=== PATIENT | female | born 2000 | race Hispanic/Latino ===

== ENCOUNTER 2018-01-20 16:04 | Emergency (ER) | payer OTHER ==
--- NOTE | 2018-01-20 17:01 | RAD ---
THREE VIEWS OF THE RIGHT FOOT 01/20/18 COMPARISON: None. HISTORY: Toe trauma, pain. FINDINGS: There is no displaced fracture or evidence of dislocation seen. There is no radiopaque foreign body o r subcutaneous gas. IMPRESSION: No acute osseous abnormality. POS: [facility]
[2018-01-20 17:37] LABS: Pregnancy Test - Urine (BHCG) Negative (Negative); Pregu Control Background? CLEAR/WHITE (CLR/WHITE); Pregu Control Bar Appear? YES (CONTROL BAR); Specific Gravity 1.018 (1.002-1.036)
[2018-01-20] MEDS ORDERED: Ketorolac Tromethamine 30 MG/ML VIAL ONE (17:47)
== END 2018-01-20 18:08 | disposition home or self-care (01) ==
LOC: ERS 16:04
DX: S90.121A Contusion of right lesser toe(s) without damage to nail, initial encounter (principal); K21.9 Gastro-esophageal reflux disease without esophagitis; W31.82XA Contact with other commercial machinery, initial encounter
CPT/HCPCS: 81025; 96372; J1885

== ENCOUNTER 2018-03-16 09:43 | Emergency (ER) | payer OTHER, SELFPAY | END 2018-03-16 10:35 | disposition home or self-care (01) | LOC: ERS 09:43 | DX: J02.9 Acute pharyngitis, unspecified (principal); J06.9 Acute upper respiratory infection, unspecified; K21.9 Gastro-esophageal reflux disease without esophagitis; F32.9 Major depressive disorder, single episode, unspecified | CPT/HCPCS: 99282 ==

== ENCOUNTER 2018-08-25 06:27 | Emergency (ER) | payer SELFPAY ==
[2018-08-25] MEDS ORDERED: Acetaminophen 500 MG TAB ONE (06:46)
[2018-08-25] MEDS ORDERED: Ketorolac Tromethamine 30 MG/ML VIAL ONE (07:11)
[2018-08-25 07:23] LABS: #Lymphocytes 1.4 thou/uL (1.20-3.40); #Monocytes 0.8 thou/uL (0.11-0.59); #Neutrophils 8.5 thou/uL (1.40-6.50); %Basophils 0.1 % (0.0-1.0); %Eosinophils 0.4 % (0.0-10.0); %Lymphocytes 13.1 % (28.0-48.0); %Monocytes 7.2 % (0.0-4.0); %Neutrophils 79.2 % (31.0-61.0); Hemoglobin 12.4 g/dL (12.0-16.0); Mean Corpuscular HGB CONC 33.3 g/dL (32.0-36.0); Mean Corpuscular Hemoglobin 29.4 pg (25.0-35.0); Mean Corpuscular Volume 88.3 fL (78.0-98.0); Mean Platelet Volume 6.9 fL (7.4-10.4); Platelet Count 316 thou/uL (130-400); RBC Distribution Width 11.9 % (11.5-14.5); Red Blood Cell (RBC) Count 4.23 mill/uL (4.00-5.20); White Blood Cell (WBC) Count 10.8 thou/uL (4.8-10.8)
[2018-08-25 07:42] LABS: ALT (SGPT) 31 U/L (8-55); AST (SGOT) 28 U/L (5-34); Albumin 4.2 g/dL (3.5-5.0); Alkaline Phosphatase 43 U/L (40-150); Anion Gap 17 mmol/L (10-20); BUN (Urea Nitrogen) 5 mg/dL (7.0-18.7); Bilirubin, Total 0.2 mg/dL (0.2-1.2); Calc. Creatinine Clearance 0 mL/min (70-130); Carbon Dioxide 14 mmol/L (22-29); Chloride 106 mmol/L (98-107); Estimated GFR-MDRD Greater than 90; Globulin 3.4 g/dL (2.4-3.5); Glucose 106 mg/dL (70-105); Potassium 4.4 mmol/L (3.5-5.1); Protein, Total 7.6 g/dL (6.0-8.3); Sodium 133 mmol/L (136-145)
--- NOTE | 2018-08-25 08:19 | RAD ---
CHEST 2 VIEWS: Date: 08/25/18 HISTORY: Cough and fever, flu-like symptoms. COMPARISON: 10/06/16. FINDINGS: Heart size is normal. The lungs are clear. Monitor leads overlie the chest. IMPRESSION: No acute intrathoracic disease. No evidence for pneumonia. Stable from prior study. POS: [facility]
[2018-08-25 08:29] LABS: Specific Gravity 1.007 (1.002-1.036)
[2018-08-25 08:45] LABS: Pregnancy Test - Urine (BHCG) Negative (Negative); Pregu Control Background? CLEAR/WHITE (CLR/WHITE); Pregu Control Bar Appear? YES (CONTROL BAR)
[2018-08-25 08:51] LABS: Bilirubin Negative (Negative); Blood, Urine Negative (Negative); Clarity CLEAR (Clear); Glucose, Urine (Dipstick) Negative (Negative); Leukocyte Moderate (Negative); Nitrite Negative (Negative); Protein, Urine (Dipstick) Negative (Neg-Trace); Specific Gravity, Urine 1.007 (1.002-1.036); Urobilinogen 0.2 mg/dL (0.2-1.0)
[2018-08-25 08:53] LABS: Bacteria/HPF None Seen HPF (None Seen); Hyaline Casts/LPF 0-3 HYALINE CAST LPF (0-3 Hyaline); RBC/HPF 0-3 HPF (0-3); Squamous Epithelial 0-3 HPF (0-3)
== END 2018-08-25 09:08 | disposition home or self-care (01) ==
LOC: ERS 06:27
DX: J11.1 Influenza due to unidentified influenza virus with other respiratory manifestations (principal); R11.0 Nausea; K21.9 Gastro-esophageal reflux disease without esophagitis; F32.9 Major depressive disorder, single episode, unspecified; F41.0 Panic disorder [episodic paroxysmal anxiety]
CPT/HCPCS: 71046; 80053; 81003; 81015; 81025; 84484; 85025; 87081; 87430; 87804; 93005; 96361; 96374; J1885

== ENCOUNTER 2018-08-31 19:12 | Emergency (ER) | payer SELFPAY ==
[2018-08-31] MEDS ORDERED: Acetaminophen 500 MG TAB ONE (19:43)
[2018-08-31 20:12] LABS: Bilirubin Negative (Negative); Blood, Urine Large (Negative); Clarity CLEAR (Clear); Glucose, Urine (Dipstick) Negative (Negative); Leukocyte Small (Negative); Nitrite Negative (Negative); Protein, Urine (Dipstick) Negative (Neg-Trace); Specific Gravity, Urine 1.007 (1.002-1.036); Urobilinogen 0.2 mg/dL (0.2-1.0)
[2018-08-31 20:18] LABS: Bacteria/HPF None Seen HPF (None Seen); Hyaline Casts/LPF 0-3 HYALINE CAST LPF (0-3 Hyaline); Pathc Cast-AUWi Flag 0.43 (0-2.49); RBC/HPF GREATER THAN 50-TNTC HPF (0-3); Squamous Epithelial 0-3 HPF (0-3)
[2018-08-31 20:20] LABS: #Basophils 0.1 thou/uL (0.0-0.2); #Eosinphils 0.1 thou/uL (0.0-0.7); #Lymphocytes 2.6 thou/uL (1.20-3.40); #Monocytes 0.7 thou/uL (0.11-0.59); #Neutrophils 10.6 thou/uL (1.40-6.50); %Basophils 0.8 % (0.0-1.0); %Lymphocytes 18.1 % (28.0-48.0); %Monocytes 5.2 % (0.0-4.0); %Neutrophils 74.9 % (31.0-61.0); Hemoglobin 12.1 g/dL (12.0-16.0); Mean Corpuscular HGB CONC 33.5 g/dL (32.0-36.0); Mean Corpuscular Hemoglobin 29.4 pg (25.0-35.0); Mean Corpuscular Volume 87.7 fL (78.0-98.0); Mean Platelet Volume 6.8 fL (7.4-10.4); Platelet Count 426 thou/uL (130-400); RBC Distribution Width 11.8 % (11.5-14.5); Red Blood Cell (RBC) Count 4.11 mill/uL (4.00-5.20); White Blood Cell (WBC) Count 14.2 thou/uL (4.8-10.8)
[2018-08-31 20:21] LABS: Pregnancy Test - Urine (BHCG) Negative (Negative); Pregu Control Background? CLEAR/WHITE (CLR/WHITE); Pregu Control Bar Appear? YES (CONTROL BAR); Specific Gravity 1.007 (1.002-1.036)
--- NOTE | 2018-08-31 20:32 | RAD ---
TWO VIEWS CHEST 08/31/18 HISTORY: Cough, fever. PA and lateral views of the chest is obtained. The lungs are well aerated. No evidence of active intr athoracic disease seen. No evidence of effusions, pneumonia or pneumothorax seen. IMPRESSION: Unremarkable two views chest. POS: [facility]
[2018-08-31 20:41] LABS: ALT (SGPT) 26 U/L (8-55); AST (SGOT) 20 U/L (5-34); Albumin 4.1 g/dL (3.5-5.0); Alkaline Phosphatase 61 U/L (40-150); Anion Gap 13 mmol/L (10-20); BUN (Urea Nitrogen) 7 mg/dL (7.0-18.7); Bilirubin, Total 0.2 mg/dL (0.2-1.2); Calc. Creatinine Clearance 0 mL/min (70-130); Calcium 9.6 mg/dL (7.8-10.44); Carbon Dioxide 22 mmol/L (22-29); Chloride 103 mmol/L (98-107); Estimated GFR-MDRD Greater than 90; Globulin 4.2 g/dL (2.4-3.5); Glucose 94 mg/dL (70-105); Potassium 3.7 mmol/L (3.5-5.1); Protein, Total 8.3 g/dL (6.0-8.3); Sodium 134 mmol/L (136-145)
--- NOTE | 2018-09-03 18:45 | EKG ---
Test Reason : CP Blood Pressure : / mmHG Vent. Rate : 102 BPM Atrial Rate : 102 BPM P-R Int : 122 ms QRS Dur : 084 ms QT Int : 324 ms P-R-T Axes : 066 078 030 degrees QTc Int : 422 ms Sinus tachycardia Otherwise normal ECG Confirmed by CHRIS GALEAS ([id number]), editor news GIORGI PATRICIA ([id number]) on 09/03/2018 6:44:46 PM Referred By: Confirmed By:CHRIS GALEAS
== END 2018-08-31 21:54 | disposition home or self-care (01) ==
LOC: ERS 19:12
DX: J11.1 Influenza due to unidentified influenza virus with other respiratory manifestations (principal); J20.9 Acute bronchitis, unspecified; K21.9 Gastro-esophageal reflux disease without esophagitis; F43.10 Post-traumatic stress disorder, unspecified; F41.0 Panic disorder [episodic paroxysmal anxiety]; Z79.1 Long term (current) use of non-steroidal anti-inflammatories (NSAID)
CPT/HCPCS: 71046; 80053; 81003; 81015; 81025; 83605; 85025; 93005; 96360

== ENCOUNTER 2019-05-07 18:56 | Emergency (ER) | payer SELFPAY ==
[2019-05-07] MEDS ORDERED: Acetaminophen 500 MG TAB ONE (19:35)
[2019-05-07] MEDS ORDERED: Ibuprofen 800 MG TAB ONE (19:35)
== END 2019-05-07 19:55 | disposition home or self-care (01) ==
LOC: ERS 18:56
DX: J06.9 Acute upper respiratory infection, unspecified (principal); K21.9 Gastro-esophageal reflux disease without esophagitis; F41.0 Panic disorder [episodic paroxysmal anxiety]; Z79.899 Other long term (current) drug therapy
CPT/HCPCS: 87804; 99283

== ENCOUNTER 2020-10-10 08:52 | Emergency (ER) | payer OTHER, SELFPAY ==
[2020-10-10 14:03] LABS: SARS-CoV-2 PCR by NAA Not Detected (NotDetected)
== END 2020-10-10 10:02 | disposition home or self-care (01) ==
LOC: ERS 08:52
DX: R50.9 Fever, unspecified (principal); R05 Cough; R06.02 Shortness of breath; M79.10 Myalgia, unspecified site; Z20.822 Contact with and (suspected) exposure to COVID-19
CPT/HCPCS: 71045; 87635; U0003; U0005

== ENCOUNTER 2021-01-29 09:10 | Emergency (ER) | payer OTHER, SELFPAY ==
[2021-01-29 13:57] LABS: SARS-CoV-2 PCR by NAA DETECTED (NotDetected)
== END 2021-01-29 10:10 | disposition home or self-care (01) ==
LOC: ERS 09:10
DX: U07.1 COVID-19 (principal)
CPT/HCPCS: 71045; 99283; U0003; U0005